=== PATIENT | female | born 1990 | race American Indian/Alaskan Native ===

== ENCOUNTER 2021-07-31 06:59 | Day surgery (SDC) | payer OTHER ==
[2021-07-31] MEDS ORDERED: SODIUM CHLORIDE 0.9% 1000 ML 1,000 ML IV SCH (07:00)
--- NOTE | 2021-07-31 07:45 | Anesthesia Day of Surgery ---
Anesthesia Day of Surgery - Day of Surgery Patient Examined: Yes Patient H&P Reviewed: Yes Patient is NPO: Yes
--- NOTE | 2021-07-31 07:45 | Anesthesia Consultation ---
Anesthesia Consult and Med Hx Date of service: 07/31/21 - Airway Anesthetic Teeth Evaluation: Good ROM Head & Neck: Adequate Mental/Hyoid Distance: Adequate Mallampati Class: Class II Intubation Access Assessment: Good - Pulmonary Exam CTA: Yes - Cardiac Exam Cardiac Exam: No Murmur - Pre-Operative Health Status ASA Pre-Surgery Classification: ASA1 Proposed Anesthetic Plan: MAC - Pulmonary Hx Smoking: No - Cardiovascular System Hx Hypertension: No - Central Nervous System Hx Seizures: No - Gastrointestinal Hx Gastroesophageal Reflux Disease: No - Endocrine Hx Renal Disease: No
[2021-07-31] MEDS ORDERED: LIDOCAINE MPF (2%) 20 MG/1 ML VIAL 5 ML ONE (07:48)
[2021-07-31] MEDS ORDERED: WATER FOR IRRIG STERILE 250 ML BOTTLE IR ONE (07:49)
[2021-07-31] MEDS ORDERED: propofoL 200 MG/20 ML VIAL IV ONE ×3 (07:49→09:54)
[2021-07-31] MEDS ORDERED: WATER FOR IRRIG STERILE 1,000 ML BOTTLE ONE (07:49)
[2021-07-31] MEDS ORDERED: MIDAZOLAM 2 MG/2 ML INJ ONE (08:27)
--- NOTE | 2021-07-31 09:00 | Procedure Note ---
Date of procedure: 07/31/21 Pre-op diagnosis: Lower GI Bleeding Post-op diagnosis: other (Lower GI bleeding secondary to Procto-Colitis (moderate)/ Minor,Internal Hemorrhoids/Small,Solitary Cecal Polyp/R/O Microscopic colitis/ r/O Ileitis) Procedure: Colonoscopy with Biopsy [place] [facility] [place]: YUDI PADRON Estimated blood loss: minimal Pathology: list Specimen disposition: to lab Condition: stable Disposition: same day (Treat with Rowasa Enema and Lialda. Avoid apirin and NSAID for 4 days. F/U in 1 to 2 weeks ([phone]).)
--- NOTE | 2021-07-31 09:15 | Operative Report ---
DATE OF SURGERY: 07/31/2021 PROCEDURES PERFORMED: Colonoscopy and biopsy. INDICATIONS: This is a 31-year-old -[place] female, complaining of lower GI bleeding. Colonoscopy was done to assess for the source of the bleeding. DESCRIPTION OF PROCEDURE: Procedure was done after getting informed consent with MAC anesthesia. Initial rectal exam was unremarkable. Instrument was passed through the rectum onto the cecum, which was identified by the ileocecal valve and the appendiceal orifice. Visualization was fair to good. The terminal ileum was intubated, showed normal mucosa. Biopsy was done to rule out for possible ileitis. There was a small solitary polyp noted in the cecum that was removed by cold biopsy with minimal bleeding. The cecum, ascending colon, transverse colon, descending colon, and most of the sigmoid showed normal mucosa. Random biopsies were done to rule out for possible microscopic colitis. There was moderate proctocolitis noted involving the distal sigmoid and the rectum. Biopsy was done to assess for the severity of the proctocolitis and the rectum showed minor internal hemorrhoid on the retroverted view. ASSESSMENT: Lower gastrointestinal bleeding secondary to proctocolitis, rule out ileitis; solitary small cecal polyp, rule out microscopic colitis; minor internal hemorrhoid. PLAN: To treat the patient with Lialda and Rowasa enemas. Avoid aspirin and aspirin-related products for the next few days. Await for the biopsy results. Further treatment adjustment will be according to the biopsy findings and have the patient follow up in the office in 1-2 weeks' time. Procedure was done in the GI lab with assistance of the GI lab team, which included the GI nurse, the health care sanitary technician and with assistance of anesthesia. TID: [id number] RECEIPT: [id number] ED/TRENT
--- NOTE | 2021-07-31 10:09 | Post Anesthesia Evaluation ---
- Post Anesthesia Evaluation Patient Participated: Yes Airway Patent: Yes Stable Respiratory Function: Yes Nausea/Vomiting: No Temp > 96.8F: Yes Pain Manageable: Yes Adequeate Hydration: Yes Anesthesia Complications: No
[2021-07-31 17:12] VITALS: BP 110/66
== END 2021-07-31 09:30 | disposition home or self-care (01) ==
LOC: GIO 06:59
DX: K92.2 Gastrointestinal hemorrhage, unspecified (principal); K64.8 Other hemorrhoids; K63.5 Polyp of colon; K63.89 Other specified diseases of intestine; Z20.822 Contact with and (suspected) exposure to COVID-19; Z79.899 Other long term (current) drug therapy; Z80.8 Family history of malignant neoplasm of other organs or systems
CPT/HCPCS: 45380; 88305; J2250; J2704; J3490; J7030; U0003; J7120; Q0162

== ENCOUNTER 2022-01-08 09:12 | Day surgery (SDC) | payer OTHER ==
[~2022-01-08 09:12] MED LIST: SODIUM CHLORIDE 0.9% 1000 ML 1,000 ML IV SCH
--- NOTE | 2022-01-08 09:47 | Anesthesia Day of Surgery ---
Anesthesia Day of Surgery - Day of Surgery Patient Examined: Yes Patient H&P Reviewed: Yes Patient is NPO: Yes
--- NOTE | 2022-01-08 09:48 | Anesthesia Consultation ---
Anesthesia Consult and Med Hx Date of service: 01/08/22 - Airway Anesthetic Teeth Evaluation: Chipped ROM Head & Neck: Adequate Mental/Hyoid Distance: Adequate Mallampati Class: Class II Intubation Access Assessment: Good - Pre-Operative Health Status ASA Pre-Surgery Classification: ASA1 Proposed Anesthetic Plan: MAC (GA if needed) - Pulmonary Hx Smoking: No - Cardiovascular System Hx Hypertension: No - Central Nervous System Hx Seizures: No - Gastrointestinal Hx Gastroesophageal Reflux Disease: No - Endocrine Hx Renal Disease: No - Hematic Hx Sickle Cell Disease: No - Other Systems Hx Obesity: No - Additional Comments Anesthesia Medical History Comments: Was here a few months ago
[2022-01-08] MEDS ORDERED: propofoL 200 MG/20 ML VIAL IV ONE ×2 (11:47→11:51)
--- NOTE | 2022-01-08 12:14 | Procedure Note ---
Date of procedure: 01/01/22 Pre-op diagnosis: Hematochezia/ H/O Proctitis Inflammatory Bowel Disease Post-op diagnosis: other (Proctocolitis (Inflammatory bowel Disease)/ R/O Ileitis/ R/O Microscopic Colitis/ MinimalInternal Hemorrhoids) Procedure: Colonoscopy with Biopsy Anesthesia: [facility] [place] Surgeon: YUDI PADRON Estimated blood loss: minimal Pathology: list Specimen disposition: to lab Condition: stable Disposition: same day (Treat with Budesonide and Rowasa Enema; avoid aspirin and NSAID for 5 days, otherwise resume previous medication ad F/U i 1 to 2weeks ([phone]).)
[2022-01-08 13:39] VITALS: BP 115/78
--- NOTE | 2022-01-08 14:55 | Post Anesthesia Evaluation ---
- Post Anesthesia Evaluation Patient Participated: Yes Airway Patent: Yes Stable Respiratory Function: Yes Nausea/Vomiting: No Temp > 96.8F: Yes Pain Manageable: Yes Adequeate Hydration: Yes Anesthesia Complications: No Block Receding Appropriately: Not Applicable Patient on Ventilator: No
--- NOTE | 2022-01-08 15:23 | Operative Report ---
DATE OF SURGERY: 01/08/2022 PROCEDURE PERFORMED: Colonoscopy with biopsy. INDICATIONS: A 31-year-old -[place] female who has been having hematochezia. Colonoscopy done earlier this year had shown presence of some mild proctocolitis, but biopsies were essentially normal at that time. Since then, she has been having persistent hematochezia in spite of treatment and repeat colonoscopy was done to make sure that there has not been further worsening of her proctocolitis and further extent of her colitis. DESCRIPTION OF PROCEDURE: Procedure was done after getting informed consent with MAC anesthesia. Initial rectal examination was unremarkable. The instrument was passed through the rectum onto the cecum, which was identified with ileocecal valve and appendiceal orifice. Terminal ileum was intubated. Biopsy was done to rule out for possible ileitis. Cecum, ascending colon, transverse colon, descending colon and most of the sigmoid showed normal mucosa. Random biopsies were done to rule out for possible microscopic colitis. The rectum, however, showed inflammation, which was moderate suggestive of proctocolitis involving the rectum and the distal part of the sigmoid. Photodocumentation and multiple biopsies were obtained to assess for the severity of the proctocolitis. ASSESSMENT: Hematochezia, proctocolitis, possibly secondary to inflammatory bowel disease, rule out ileitis, rule out microscopic colitis. PLAN: To treat the patient with Rowasa enema. Also, treat the patient with budesonide. Await for the biopsy results. Further treatment adjustment will be according to the biopsy findings. The patient will be asked to avoid aspirin and aspirin-related products for the next few days. Procedure was done in the GI lab with assistance of the GI lab team, which included the GI nurse, the textile science technician and with assistance of anesthesia. TID: [id number] RECEIPT: [id number] ED/POLLY
== END 2022-01-08 13:05 | disposition home or self-care (01) ==
LOC: GIO 09:12
DX: K92.1 Melena (principal); K51.30 Ulcerative (chronic) rectosigmoiditis without complications; K63.89 Other specified diseases of intestine; Z79.899 Other long term (current) drug therapy
CPT/HCPCS: 45380; 81025; 88305; J2704; J7030